=== PATIENT | female | born 1985 | race Caucasian/White ===

== ENCOUNTER → 2021-10-01 11:44 | Outpatient (CLI) | payer BC, SELFPAY ==
--- NOTE | 2021-10-01 11:49 | XR_ITS ---
PROCEDURE: XR KNEE LT 4V CLINICAL INDICATION: pain COMPARISON: No exams were available for comparison FINDINGS: No fracture or dislocation. No erosive changes evident. Other findings:Small lucencies are noted in the mid aspect of the patella posteriorly and could represent subchondral cystic changes. There are minimal osteoarthritic changes of the patellofemoral joint IMPRESSION: Minimal osteoarthritic change patellofemoral joint with small subcortical lucencies posteriorly of the patella and may represent subchondral cysts Dictated by: Jerome Bae MD 10/01/2021 15:59 Jerome Bae MD in [facility] 10/01/2021 15:59
[2021-10-01 15:22] LABS: Chloride 101 mmol/L (98-107); Potassium 4.4 mmoL/L (3.5-5.1)
[2021-10-01 15:23] LABS: Basophils # 0.1 K/mm3 (0-0.2); Basophils % 0.9 % (0.1-2.0); Eosinophils # 0.2 K/mm3 (0.0-0.4); Eosinophils % 2.9 % (0.1-12.0); Hematocrit 34.9 % (37.0-47.0); Hemoglobin 11.7 g/dL (12.2-16.2); Lymphocytes # 1.3 K/mm3 (0.7-4.5); Lymphocytes % 20.5 % (10-50); Mean Corpuscular HGB Conc 33.4 g/dL (31.8-35.4); Mean Corpuscular Hemoglobin 28.2 pg (27.0-31.2); Mean Corpuscular Volume 84.4 fl (81-99); Mean Platelet Volume 9.2 fl (7.4-10.4); Monocytes # 0.3 K/mm3 (0.1-1.0); Neutrophils # 4.4 K/mm3 (1.8-7.8); Neutrophils % 70.8 % (37.0-80.0); Platelet Count 265 K/mm3 (142-424); Red Blood Count 4.13 M/mm3 (4.20-5.40); Red Cell Distribution Width 15.4 % (11.5-17.5); Sodium 136 mmol/L (136-145); White Blood Count 6.2 K/mm3 (4.8-10.8)
[2021-10-01 15:24] LABS: Alanine Aminotransferase 32 U/L (12-78); Alkaline Phosphatase 75 U/L (38-126); Aspartate Amino Transferase 42 U/L (14-36); Bilirubin,Total 0.5 mg/dl (0.2-1.3); Blood Urea Nitrogen 6 mg/dl (7-17); Estimated Glomerular Filt Rate 114 ml/min (>60); GFR (African American) 138 ML/MIN (>60)
[2021-10-01 15:25] LABS: Albumin Level 4.5 g/dl (3.5-5.0); Albumin/Globulin Ratio 1.7 (1.1-1.8); Anion Gap 12.4 mEq/L (5-15); Calcium 9.1 mg/dl (8.4-10.2); Carbon Dioxide 27 mmol/L (22.0-30.0); Globulin 2.7 g/dL (1.3-3.2); Glucose 87 mg/dl (74-100); Total Protein,Serum 7.2 g/dl (6.3-8.2)
[2021-10-01 15:26] LABS: Iron 57 ug/dL (37-170)
[2021-10-01 16:33] LABS: Hemoglobin A1C 4.5 % (4.0-6.0)
== END ==
PROVIDERS: PCP Family Medicine; Visit Provider Family Medicine
DX: M25.562 Pain in left knee (principal); I10 Essential (primary) hypertension; Z79.899 Other long term (current) drug therapy
CPT/HCPCS: 73564; 80053; 83036; 83540; 85025

== ENCOUNTER → 2021-10-16 13:00 | Outpatient (CLI) | payer BC, SELFPAY ==
--- NOTE | 2021-10-16 13:01 | CA_ITS ---
APPROVED REPORT Bilateral Lower Extremity Venous Study for DVT. Benzene Washer Operator: KAIN QuintanillaT Indications Lower Extremity Edema: Left edema Risk Factors Obesity Vein Imaging CFV (R): compressive, spontaneous, phasic, augmentation FEM (R): compressive, spontaneous, phasic, augmentation POP (R): compressive, spontaneous, phasic, augmentation PTV (R): Compressible GSV (R): Compressible Peroneals (R):Compressible GAS (R): Compressible CFV (L): compressive, spontaneous, phasic, augmentation FEM (L): compressive, spontaneous, phasic, augmentation POP (L): compressive, spontaneous, phasic, augmentation PTV (L): Compressible GSV (L): Compressible Peroneals (L):Compressible GAS (L): Compressible Findings Study suggests no evidence of DVT or SVT of the bilateral lower extremities. Conclusion Study suggests no evidence of DVT or SVT of the bilateral lower extremities. Electronically signed by : Jerome Bae MD 10/16/2021 14:22:57
== END ==
PROVIDERS: PCP Family Medicine; Visit Provider Family Medicine
DX: M79.89 Other specified soft tissue disorders (principal); M79.605 Pain in left leg
CPT/HCPCS: 93970